=== PATIENT | female | born 1960 | race Caucasian/White ===

== ENCOUNTER → 2017-03-16 | Outpatient (CLI) | payer OTHER ==
[~2017-03-16] MED LIST: CLARITIN10 M3 PO; EFFEXOR PO; FLEXERIL10 MG PO; GABAPENTIN400 MG PO; HYDROCHLOROTHIA25 MG PO; MEDROL PO; MOBIC PO; NORCO 7.5-3251 EACH PO; OMEPRAZOLE10 M1 PO; PANTOPRAZOLE SO40 MG PO; ROBAXIN500 MG PO; ROPINIROLE HCL0.5 MG PO; ROPINIROLE HCL1 MG PO; VICODIN 5/500 T1 TAB PO; ZOLOFT100 MG PO; ZYRTEC PO; ZYRTEC10 M1 PO
--- NOTE | ~2017-03-16 | US5 ---
[facility] A Service of [facility] & [facility] RADIOLOGY TEXT RESULTS PATIENT: CHARLOTTE WHITEHEAD LOCATION: [facility] : 62 UNIT #: [id number] AGE: [address]: ROBERT MENESES MD SEX: F ORDER DR: [id number] [facility] [address] [place], [place] [address] [id number] O MR#: [id number] #: [id number] NAME: CHARLOTTE WHITEHEAD : 1960 SEX: F STUDY DATE/TIME: 03/16/2017 9:50 UNIT: [facility] ROOM: STUDY DESCRIPTION: US Abdominal Complete Attending Physician: Robert Meneses M.D. Referring Physician: Robert Meneses M.D. Ordering Physician: Roebrt Meneses M.D. Primary Care Physician: Robert Meneses M.D. MEDICAL IMAGING REPORT This report is preliminary unless electronic signature is present EXAM Complete abdominal ultrasound DATE 03/16/2017 HISTORY Question abdominal tenderness with right flank pain. Symptoms began before 2011, per patient. COMPARISON None. FINDINGS The pancreas has normal sonographic appearance. An anechoic 13-mm lesion in the inferior right hepatic lobe and a 1.2-cm anechoic lesion in the inferior right hepatic lobe each are compatible with cysts. Liver size is within normal limits, 14.2 cm in length. No ascites is seen. Multiple calcified shadowing gallstones are present, one of the largest measuring nearly 2.7 cm. However, no abnormal gallbladder wall thickening or pericholecystic fluid is identified. The right kidney measures 11.6 cm in length. A hypoechoic lesion in the right upper renal pole measures 1.6 x 1.3 cm, and cannot be confirmed as a simple cyst. Another questionable hypoechoic lesion in the right lower renal pole measures 2.2 x 1.2 x 1.5 cm. No shadowing renal stone or hydronephrosis is seen. Common bile duct caliber is normal, 4 mm. No intrahepatic biliary ductal dilation is identified. The abdominal aorta measures 1.3 cm proximally, 1.5 cm at its mid segment, STS. [facility] A Service of [facility] & [facility] RADIOLOGY TEXT RESULTS PATIENT: CHARLOTTE WHITEHEAD LOCATION: [facility] : 62 UNIT #: [id number] AGE: [address]: ROBERT MENESES MD SEX: F ORDER DR: 1.4 cm distally and demonstrates normal color and spectral Doppler flow. Left kidney measures 10.5 cm in length without focal cortical lesion, shadowing stone or hydronephrosis. Spleen size is normal, 10.6 cm. IMPRESSION 1. Multiple calcified gallstones. No sonographic evidence of cholecystitis or biliary ductal dilation at this time. 2. 2 hypoechoic lesions are seen within the right kidney. They do not have sonographic features confirmatory for simple cysts, although they could potentially represent hemorrhagic or proteinaceous cysts. Consider correlation to CT abdomen without and with contrast renal mass protocol. 3. 2 small right hepatic lobe cysts. Dictated by... Renita Wasserman M.D. THIS IS AN ELECTRONICALLY VERIFIED REPORT Renita Wasserman M.D. at 03/17/2017 7:11 AM VARGAS/caterina TD: 03/16/2017 21:03 JOB #: [id number] MEDICAL IMAGING REPORT Page 1 of 1 COPY
== END | disposition home or self-care (01) ==
LOC: CWCC 08:55
DX: R10.811 Right upper quadrant abdominal tenderness (principal); K80.80 Other cholelithiasis without obstruction; N28.9 Disorder of kidney and ureter, unspecified; K76.89 Other specified diseases of liver
CPT/HCPCS: 76700

== ENCOUNTER → 2017-04-21 | Outpatient (CLI) | payer OTHER ==
--- NOTE | ~2017-04-21 | EKG ---
PATIENT: CHARLOTTE WHITEHEAD UNIT #: [id number] Ventricular Rate: 58 BPM Atrial Rate: 58 BPM P-R Interval: 158 ms QRS Duration: 82 ms Q-T Interval: 438 ms QTC Calculation(Bezet): 429 ms P Macomb: 39 degrees Calculated R Macomb: 12 degrees Calculated T Macomb: 10 degrees Diagnosis Line: Sinus bradycardia Diagnosis Line: Otherwise normal ECG Diagnosis Line: No previous ECGs available Diagnosis Line: Confirmed by NAZARIO PERSON MD ([id number]) on Diagnosis Line: 04/22/2017 8:47:37 AM INTERPRETING MD: RAZA ACEVES
[2017-04-21 11:50] LABS: ALBUMIN SERUM 4.5 g/dL (3.5-5.0); BILIRUBIN,TOTAL 0.6 mg/dL (0.2-2.0); CALCIUM SERUM 9.3 mg/dL (8.4-10.2); CREATININE SERUM 0.5 mg/dL (0.6-1.4); GLOM FILT RATE Estimated 108.2 mL/min (>60); POTASSIUM 3.7 mmol/L (3.5-5.1); PROTEIN TOTAL SERUM 7.4 g/dL (6.0-8.3)
== END | disposition home or self-care (01) ==
LOC: CAMB 10:48
PROVIDERS: Surgery
DX: Z01.818 Encounter for other preprocedural examination (principal); K80.10 Calculus of gallbladder with chronic cholecystitis without obstruction; K90.49 Malabsorption due to intolerance, not elsewhere classified; R10.13 Epigastric pain; Z86.711 Personal history of pulmonary embolism; R00.1 Bradycardia, unspecified
CPT/HCPCS: 36415; 80053; 93005

== ENCOUNTER → 2017-04-28 | Day surgery (SDC) | payer OTHER ==
--- NOTE | ~2017-04-28 | OR ---
Unit #: [id number] #: [id number] Patient: CHARLOTTE WHITEHEAD [id number] [address] [address] [id number] O MR#: [id number] NAME: CHARLOTTE WHITEHEAD ROOM: Date of Procedure: 04/28/2017 Admission Date: 04/28/2017 Surgeon: Arthur Kebede Jr., M.D. : 1960 Attending Physician: Arthur Kebede Jr., M.D. Primary Care Physician: Gillian De Leon M.D. PROCEDURE OPERATIVE NOTE PREOPERATIVE DIAGNOSIS Chronic cholecystitis, cholelithiasis. POSTOPERATIVE DIAGNOSIS Chronic cholecystitis, cholelithiasis. ANESTHESIA General with endotracheal intubation. PROCEDURE PERFORMED Laparoscopic cholecystectomy. INDICATION FOR PROCEDURE The patient is a 57-year-old white female who has been having intermittent biliary colic. She had recent workup with ultrasound which revealed evidence of gallstones. She is brought in at this time for laparoscopic cholecystectomy at her request. Preoperative liver function tests are basically normal with minimal elevation of her alkaline phosphatase but a total bilirubin that is normal. DESCRIPTION OF PROCEDURE The patient was positioned in supine position and, after being anesthetized and intubated, the patient was prepped and draped in routine fashion for laparoscopic cholecystectomy. A small supraumbilical incision made approximately a centimeter in length. This was carried down to the fascia. The fascia was lifted between two Luisa clamps and a Veress needle introduced into the abdomen. The abdomen was inflated with CO2 gas. A 5 mm port was introduced followed by the camera. There is no evidence of any injury related to introduction of the port or the Veress needle. Brief intraabdominal exploration was carried out. The patient was noted to have what appeared to be chronically inflamed gallbladder. The liver was somewhat globular. Two 5 mm ports were placed laterally and a 11 mm port just to the right of the upper midline. The gallbladder was lifted and dissection was carried out in the triangle of Calot. The cystic duct was isolated, hemoclipped x4 and divided approximately a centimeter from its junction with the common duct. The common duct appeared normal. The cystic artery was identified, hemoclipped x3 and divided. There was also a posterior branch of the cystic artery which was likewise hemoclipped and divided. The gallbladder was then removed from its bed with Hook cautery and, in the center part of the gallbladder bed, there was a small duct of Luschka which was hemoclipped and divided. The gallbladder was then removed, placed in EndoCatch bag and brought out through the larger port Unit #: [id number] #: [id number] Patient: CHARLOTTE WHITEHEAD site. The port was replaced. Subhepatic space checked. There was no evidence any bleeding from the gallbladder bed. Clips on the cystic duct and cystic artery and vein were intact with no evidence of any leak or bleeding. After total hemostasis was noted, the CO2 was expressed from the abdomen. The fascia and the larger port site were approximated using the NeoClose technique. After the CO2 was expressed from the abdomen, the ports were completely removed. There was no evidence of any bleeding from the port sites. Port sites were injected with 0.5% Marcaine with epinephrine locally. The wounds were irrigated and, after hemostasis achieved with Bovie cautery, the skin edges were approximated with stainless steel skin clips and a skin stapling device. Sterile dressings were applied externally. Estimated blood loss less than 50 mL. The patient received less than 1000 mL crystalloid solution during the procedure. Sponge and instrument counts were correct x3. No drains were used. No complication. Patient taken to the recovery room with stable vital signs in satisfactory condition. Dictated by... Arthur Kebede Jr., M.D. JMB/nurys TD: 04/28/2017 11:53 JOB #: [id number] PROCEDURE OPERATIVE NOTE Page 1 of 1 X Arthur Kebede MD X PROCEDURE OPERATIVE NOTE
== END | disposition home or self-care (01) ==
LOC: CSUR 07:08
DX: K80.10 Calculus of gallbladder with chronic cholecystitis without obstruction (principal); K90.49 Malabsorption due to intolerance, not elsewhere classified; K21.9 Gastro-esophageal reflux disease without esophagitis; M54.5 Low back pain; I10 Essential (primary) hypertension; M13.0 Polyarthritis, unspecified; G89.29 Other chronic pain; Z86.711 Personal history of pulmonary embolism; Z80.3 Family history of malignant neoplasm of breast; Z88.0 Allergy status to penicillin; Z79.01 Long term (current) use of anticoagulants; Z79.899 Other long term (current) drug therapy; Z98.1 Arthrodesis status; Z98.890 Other specified postprocedural states
CPT/HCPCS: 88304; J0131; J0330; J1100; J1650; J2250; J2405; J2710; J3010; J3370

== ENCOUNTER → 2017-06-29 | Outpatient (CLI) | payer OTHER ==
--- NOTE | ~2017-06-29 | CT6 ---
[facility] A Service of [facility] & [facility] RADIOLOGY TEXT RESULTS PATIENT: CHARLOTTE WHITEHEAD [facility] [birth year] UNIT #: [id number] AGE: [address]: Arthur Kebede MD SEX: F ORDER DR: [id number] [facility] [address] [place], [place] [address] [id number] O MR#: [id number] Acc #: [id number] NAME: CHARLOTTE WHITEHEAD : 1960 SEX: F STUDY DATE/TIME: 06/29/2017 15:02 UNIT: [facility] ROOM: STUDY DESCRIPTION: CT Abdomen WWo Cont Attending Physician: Arthur Kebede Jr., M.D. Referring Physician: Arthur Kebede Jr., M.D. Ordering Physician: Arthur Kebede Jr., M.D. Primary Care Physician: Gillian De Leon M.D. MEDICAL IMAGING REPORT This report is preliminary unless electronic signature is present EXAM CT abdomen with and without contrast. INDICATIONS Cysts on the kidneys. TECHNIQUE CT of the abdomen was performed before and after administration of IV contrast, using multiphase protocol. Coronal and sagittal reformatted images were obtained. This CT exam was performed with one or more of the following radiation dose reduction techniques: automatic exposure control, adjustment of mA and/or kV according to patient size, and iterative reconstruction. COMPARISON Comparison is made with chest CT from 04/18/2016. No prior abdomen CTs are available. FINDINGS The lung bases show minimal scarring in the base of the left lower lobe. The liver is incompletely evaluated on all the phases. There are some scattered low density lesions in the liver that are probably cysts. Cholecystectomy. The spleen is unremarkable. There is no evidence for a renal stone. There are 2 cysts in the right kidney. The largest is in the lower pole, measuring about 1.8 cm. There is no evidence for solid renal mass or hydronephrosis. The adrenal glands are unremarkable. The pancreas is unremarkable. There is a tiny hiatal hernia. The bone windows are unremarkable. IMPRESSION There are 2 small cysts within the right kidney. There is no evidence for solid renal mass or renal stone. [facility] A Service of [facility] & [facility] RADIOLOGY TEXT RESULTS PATIENT: CHARLOTTE WHITEHEAD LOCATION: [facility] : 62 UNIT #: [id number] AGE: [address]: Arthur Kebede MD SEX: F ORDER DR: Dictated by... Rafiq Licona M.D. THIS IS AN ELECTRONICALLY VERIFIED REPORT Rafiq Licona M.D. at 06/30/2017 4:37 PM Dominique TD: 06/30/2017 13:06 JOB #: [id number] MEDICAL IMAGING REPORT Page 1 of 1 COPY
[2017-06-29 20:21] LABS: POC - CREATININE 0.66 mg/dL (0.44-1.03); POC - GFR >60.0 mL/min (>60)
== END | disposition home or self-care (01) ==
LOC: CCAT 13:35
PROVIDERS: Surgery
DX: N28.1 Cyst of kidney, acquired (principal)
CPT/HCPCS: 74170; 82565; Q9967